=== PATIENT | female | born 1965 | race Caucasian/White ===

== ENCOUNTER → 2018-05-10 | Outpatient (CLI) | payer OTHER ==
[~2018-05-10] MED LIST: HYDROCODON-ACE1 EAC7 PO; METOPROLOL TART25 MG PO; WELCHOL625 MG PO; ZOFRAN ODT8 MG PO
== END | disposition home or self-care (01) ==
LOC: EEG 08:52
DX: G45.9 Transient cerebral ischemic attack, unspecified (principal)
CPT/HCPCS: 95954